=== PATIENT | female | born 1985 | race Caucasian/White ===

== ENCOUNTER 2017-04-26 05:48 | Inpatient (IN) | payer MEDICAID ==
[2017-04-26] MEDS ORDERED: METHYLERGONOVINE 0.2 MG INJ IM ×2 (06:30→12:00)
[2017-04-26] MEDS ORDERED: MISOPROSTOL 200 MCG TAB PR ×2 (06:30→12:00)
[2017-04-26] MEDS ORDERED: CARBOPROST 250 MCG INJ IM ×2 (06:30→12:00)
[2017-04-26] MEDS ORDERED: OXYTOCIN 30 UNITS/LR 500 ML IV ×2 (06:30→12:00)
[2017-04-26 06:34] LABS: ADD MAN DIFF? NO
[2017-04-26 06:44] LABS: BASOPHILS % 0.6 % (0.0-2.0); EOSINOPHILS # 0.2 10^3/ul (0.0-0.5); EOSINOPHILS % 2.2 % (0.0-7.0); HEMATOCRIT 39.5 % (37.0-47.0); LYMPHOCYTES # 1.8 10^3/ul (0.8-2.9); LYMPHOCYTES % 26.4 % (15.0-51.0); MEAN CORPUSCULAR HEMOGLOBIN 34.9 pg (29.0-33.0); MEAN CORPUSCULAR HGB CONC 35.4 g/dl (32.0-37.0); MEAN CORPUSCULAR VOLUME 98.5 fl (82.0-101.0); MEAN PLATELET VOLUME 10.2 fl (7.4-10.4); MONOCYTE # 0.6 10^3/ul (0.3-0.9); MONOCYTES % 8.9 % (0.0-11.0); NEUTROPHIL # 4.1 10^3/ul (1.6-7.5); NEUTROPHILS % 60.9 % (39.0-77.0); PLATELET COUNT 145 10^3/UL (140-415); RED BLOOD COUNT 4.01 10^6/ul (4.20-5.40); RED CELL DISTRIBUTION WIDTH 12.8 % (11.5-14.5)
[2017-04-26 06:44] LABS: WHITE BLOOD COUNT 6.8 10^3/ul (4.8-10.8)
[2017-04-26] MEDS: LACTATED RINGER'S 1,000 ML IV ×2 (06:44→07:34)
[2017-04-26 07:08] LABS: INR 0.99; PROTIME 13.2 Sec (11.9-14.9)
[2017-04-26 07:09] LABS: PARTIAL THROMBOPLASTIN TIME 26.7 Sec (25.0-35.0)
[2017-04-26 07:50] LABS: HEPATITIS B SURFACE ANTIGEN NEGATIVE (NEGATIVE)
[2017-04-26] MEDS ORDERED: FENTAnyl 50 MCG/ML VIAL (08:15)
[2017-04-26] MEDS ORDERED: PHENYLephrine (100 MCG/ML) 5ML SYG (08:16)
[2017-04-26] MEDS ORDERED: morphine SULFATE/PF (10 MG/10 ML) INJ (08:16)
[2017-04-26] MEDS ORDERED: DEXAMETHASONE 4 MG/ML 1 ML INJ (08:26)
[2017-04-26] MEDS ORDERED: ONDANSETRON 4 MG INJ (08:26)
[2017-04-26] MEDS: OXYTOCIN 30 UNITS/LR 500 ML IV ×4 (09:51→20:39)
[2017-04-26] MEDS: CEFAZOLIN 2 GM/50 ML (PMX) 50 ML IV (09:54)
[2017-04-26] MEDS ORDERED: HYDROmorphONE 0.5 MG/0.5 ML SYG IV (10:00)
[2017-04-26] MEDS ORDERED: NALBUPHINE HCL (10 MG/1 ML) INJ IV (10:00)
[2017-04-26] MEDS ORDERED: ZOLPIDEM 5 MG TAB PO (10:00)
[2017-04-26] MEDS ORDERED: NALOXONE (0.4 MG/ML) INJ IV (10:00)
[2017-04-26] MEDS: KETOROLAC 30 MG INJ IV ×2 (10:36→23:38)
[2017-04-26] MEDS: CEFAZOLIN 1 GM/50 ML (PMX) 50 ML IVPB (11:53)
[2017-04-26] MEDS ORDERED: HYDROCODONE/APAP (5/325) TAB PO (12:00)
[2017-04-26] MEDS: IBUPROFEN 600 MG TAB PO ×2 (12:00→17:02)
[2017-04-26] MEDS: DIPHENHYDRAMINE 50 MG INJ IV (12:37)
[2017-04-26] MEDS: HYDROmorphONE 0.5 MG/0.5 ML SYG IV (13:43)
[2017-04-26 15:01] LABS: RAPID PLASMA REAGIN NONREACTIVE (NR)
[2017-04-26] MEDS: SENNA/DOCUSATE NA (8.6MG/50MG) TAB PO (20:55)
[2017-04-27] MEDS: OXYTOCIN 30 UNITS/LR 500 ML IV ×4 (00:44→11:17)
[2017-04-27] MEDS: IBUPROFEN 600 MG TAB PO ×5 (06:00→23:56)
[2017-04-27] MEDS: SENNA/DOCUSATE NA (8.6MG/50MG) TAB PO ×2 (08:35→20:45)
[2017-04-27] MEDS: KETOROLAC 30 MG INJ IV (08:35)
[2017-04-27 09:43] LABS: ADD MAN DIFF? NO
[2017-04-27 09:50] LABS: BASOPHILS % 0.3 % (0.0-2.0); EOSINOPHILS # 0.1 10^3/ul (0.0-0.5); EOSINOPHILS % 1.1 % (0.0-7.0); HEMOGLOBIN 11.4 g/dl (12.0-16.0); LYMPHOCYTES # 1.7 10^3/ul (0.8-2.9); LYMPHOCYTES % 17.1 % (15.0-51.0); MEAN CORPUSCULAR HEMOGLOBIN 35.1 pg (29.0-33.0); MEAN CORPUSCULAR HGB CONC 35.6 g/dl (32.0-37.0); MEAN CORPUSCULAR VOLUME 98.5 fl (82.0-101.0); MEAN PLATELET VOLUME 10.1 fl (7.4-10.4); MONOCYTES % 9.6 % (0.0-11.0); NEUTROPHIL # 7.1 10^3/ul (1.6-7.5); NEUTROPHILS % 71.3 % (39.0-77.0); PLATELET COUNT 137 10^3/UL (140-415); RED BLOOD COUNT 3.25 10^6/ul (4.20-5.40); RED CELL DISTRIBUTION WIDTH 12.6 % (11.5-14.5)
[2017-04-27] MEDS: OXYCODONE/ACETAMINOPHEN (5/325) TAB PO (20:45)
[2017-04-28] MEDS: IBUPROFEN 600 MG TAB PO ×4 (05:12→23:28)
[2017-04-28] MEDS: SENNA/DOCUSATE NA (8.6MG/50MG) TAB PO ×2 (09:48→21:00)
[2017-04-28] MEDS: OXYCODONE/ACETAMINOPHEN (5/325) TAB PO ×3 (09:48→18:33)
[2017-04-28] MEDS: NA PHOSPHATE/BIPHOS 133 ML ENEMA PR (12:30)
[2017-04-28] MEDS: LANOLIN 7 GM TUBE TOP (16:24)
[2017-04-29] MEDS: HYDROCODONE/APAP (5/325) TAB PO (01:50)
[2017-04-29] MEDS: IBUPROFEN 600 MG TAB PO ×2 (05:24→12:24)
[2017-04-29] MEDS: SENNA/DOCUSATE NA (8.6MG/50MG) TAB PO (09:00)
[2017-04-29] MEDS: DIPHTH/TET/ACEL PERTUSS (ADULT) 0.5 ML VIAL IM* (09:00)
== END 2017-04-29 15:05 | disposition home or self-care (01) | DRG 766 ==
LOC: L-D 05:48 → PP1 11:37
PROVIDERS: Obstetrics & Gynecology
PROC: 10D00Z1 Extraction of Products of Conception, Low, Open Approach (ICD-10-PCS; principal; 2017-04-26 07:30)
PROC: 0UL70ZZ Occlusion of Bilateral Fallopian Tubes, Open Approach (ICD-10-PCS; 2017-04-26 07:30)
PROC: 3E033VJ Introduction of Other Hormone into Peripheral Vein, Percutaneous Approach (ICD-10-PCS; 2017-04-26 07:30)
DX: O34.211 Maternal care for low transverse scar from previous cesarean delivery (principal); Z30.2 Encounter for sterilization; Z37.0 Single live birth; Z3A.39 39 weeks gestation of pregnancy
CPT/HCPCS: 85025; 85610; 85730; 86592; 86850; 86900; 86901; 87340; 88302; 90715; 93970; 99464